=== PATIENT | male | born 1975 | race Two or more races ===

== ENCOUNTER → 2016-12-19 | Outpatient (CLI) | payer BC ==
[~2016-12-19] MED LIST: BREO ELLIPTA I1 EACH INH; INHALER
--- NOTE | ~2016-12-19 | CR63 ---
[facility] A Service of [facility] RADIOLOGY TEXT RESULTS PATIENT: ABBE ROSE LOCATION: [facility] : [birth year] UNIT #: [id number] AGE: [address]: JOSEFINA HILL APRN SEX: M ORDER DR: [id number] [facility] [address] [place], [place] [address] [id number] O MR#: [id number] Acc #: [id number] NAME: ABBE ROSE : 1975 SEX: M STUDY DATE/TIME: 12/19/2016 18:14 UNIT: [facility] ROOM: STUDY DESCRIPTION: CR Chest 2 View Attending Physician: Josefina Hill Referring Physician: Josefina Hill Ordering Physician: Josefina Hill A.P.R.N. Primary Care Physician: Ericka Vallejo M.D., [facility] MEDICAL IMAGING REPORT This report is preliminary unless electronic signature is present EXAM Chest 2 views, 12/19/2016 HISTORY Shortness of breath intermittently for 1 year. FINDINGS PA and lateral views are obtained. The cardiovascular configuration is normal and the lungs are clear. CONCLUSION Normal chest. Dictated by... Phillip Curiel M.D. THIS IS AN ELECTRONICALLY VERIFIED REPORT Phillip Curiel M.D. at 12/23/2016 2:45 PM VIRIDIANA/aniceto TD: 12/19/2016 22:07 JOB #: [id number] MEDICAL IMAGING REPORT Page 1 of 1 COPY
== END | disposition home or self-care (01) ==
LOC: CRAD 18:05
DX: R06.02 Shortness of breath (principal)
CPT/HCPCS: 71020

== ENCOUNTER → 2017-06-05 | Day surgery (SDC) | payer OTHER, BC ==
--- NOTE | ~2017-06-05 | OR ---
Unit #: [id number] #: [id number] Patient: ABBE ROSE [id number] [address] [place], [place] [address] [id number] O MR#: [id number] NAME: ABBE ROSE ROOM: Date of Procedure: 06/05/2017 Admission Date: 06/05/2017 Surgeon: Horace Fink Jr., M.D. : 1975 Attending Physician: Horace Fink Jr., M.D. Primary Care Physician: Ericka Vallejo M.D., [facility] OPERATIVE REPORT INDICATIONS FOR PROCEDURE The patient is a 41-year-old male recently presented to the office complaining of right inguinal hernia which is causing some pain and discomfort. He was also noted to have a palpable left inguinal hernia. It was felt the patient should have laparoscopic bilateral inguinal hernia repairs. He was brought in this time for this procedure at his request. PREOPERATIVE DIAGNOSIS Bilateral inguinal hernias. POSTOPERATIVE DIAGNOSIS Bilateral inguinal hernias, noting both hernias to be direct. ANESTHESIA General with endotracheal intubation with 0.5% Marcaine with epinephrine locally. PROCEDURES PERFORMED Diagnostic laparoscopy with laparoscopic bilateral inguinal hernia repair. DESCRIPTION OF PROCEDURE The patient was positioned in supine position. After being anesthetized and intubated, she was prepped and draped in routine fashion for laparoscopic inguinal hernia repair. A small infraumbilical incision was made to the right of the midline and this was carried down to the fascia. The fascia lifted between two Jack clamps and Veress needle was introduced into the abdomen. The abdomen was then inflated with CO2 gas. A 5-mm port was introduced in the abdomen followed by the camera. There was no evidence of any injury related to introduction of the port or the Veress needle. Brief intra-abdominal exploration was carried out. The patient was noted to have bilateral direct inguinal hernias with bowel incarcerated up into them somewhat. There were no other specific abnormalities except for noting the bladder was semi-distended. At this point, CO2 was expressed from the abdomen. The fascia just to the right of the midline through the initial incision was then lanced with the #11 blade and the rectus muscle was retracted over and a tunnel produced using a large Ashlee down towards the suprapubic area. The dissecting balloon was then placed and under direct visualization with the camera, it was then inflated and used for dissection. The dissector was then removed and the retracting device placed and inflated and two 5-mm ports were placed in the lower midline. Dissection was then carried out on the left side first with the hernia being reduced and tissue being pushed back down Unit #: [id number] #: [id number] Patient: ABBE ROSE cephalad away from the base of the cord and the vessels. Space was developed laterally as routine and a large 3D mesh was then placed and tacked to the Royer ligament with 2 separate tacks. There was excellent coverage of the defect and at this point, dissection again was then carried out on the opposite side on the right and all peritoneal tissue was then reduced cephalad and mesh placed and tacked to the pubic tubercle with the Tacker. There was excellent coverage also on this area where the direct defect was. The bladder and tissue in the area along with peritoneum was then pulled over the top of the mesh which was flat and then CO2 was expressed from the space and the tissue was allowed to fall down on the front of the graft. A Veress needle was used to decompress the abdomen since some CO2 had leaked through the peritoneal area worked on probably through a small hole and had filled the abdomen with gas. After the gas was then evacuated, the Veress needle was removed. The wounds were irrigated. The fascia in the larger port site was approximated with [id number] 0 Vicryl suture. The port sites were then injected with 0.5% Marcaine with epinephrine locally. After total hemostasis was noted, the skin edges on the wounds were approximated with stainless-steel skin clips and skin stapling device. Sterile dressings were applied externally. The port sites as noted above were injected with 0.5% Marcaine with epinephrine. After this was completed, the wounds were covered with Band-Aids. Estimated blood loss was less than 50 mL and the patient received less than 2000 mL of crystalloid solution during the procedure. Sponges and instrument counts were correct x3. No drains used. No complications. The patient was taken to the recovery room with stable vital signs in satisfactory condition. Dictated by... Horace Fink Jr., M.D. JMB/rojas TD: 06/06/2017 05:09 JOB #: [id number] CC: Ericka Vallejo M.D., [facility] OPERATIVE REPORT Page 1 of 1 X Horace Fink MD PROCEDURE OPERATIVE NOTE
== END | disposition home or self-care (01) ==
LOC: CSUR 05:44
DX: K40.00 Bilateral inguinal hernia, with obstruction, without gangrene, not specified as recurrent (principal); J45.909 Unspecified asthma, uncomplicated; E78.00 Pure hypercholesterolemia, unspecified; Z79.899 Other long term (current) drug therapy
CPT/HCPCS: C1781; J0330; J0690; J1100; J1885; J2250; J2270; J2405; J2710; J3010